=== PATIENT | female | born 1975 | race American Indian/Alaskan Native ===

== ENCOUNTER 2017-11-26 00:23 | Emergency (ER) | payer SELFPAY ==
[~2017-11-26] VITALS: Ht 157.5 cm; Wt 59.9 kg
[2017-11-26 00:23] VITALS: BP_SYST 151
--- NOTE | 2017-11-26 00:23 | NUR ---
Pt brought in by lawyer criminal for medical clearance before booking. Pt was found to have hypertension. Pt denied history of hypertension, denied any surgeries. Pt denied fever, chills, nausea or vomiting. Pt denied chest pain or SOB. Pt denied headache or blurry vision. Pt has elevated blood pressure, mildly elevated heart rate stated feeling anxious about her situation. Pt with normal respiratory effort, no sob, lungs cta. ER MD aware of pt's condition.
--- NOTE | 2017-11-26 00:23 | NUR ---
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
--- NOTE | 2017-11-26 00:36 | NUR ---
ER examining patient.
[2017-11-26 00:48] VITALS: BP_SYST 151
--- NOTE | 2017-11-26 00:48 | NUR ---
Patient has been medically cleared for booking. Patient given written and verbal discharge instructions and verbalizes understanding. ER MD discussed with patient the results and treatment provided. Patient in stable condition. ID arm band removed. No Rx given. Patient educated on pain management and to follow up with PMD. Pain Scale 0/10. Opportunity for questions provided and answered. Patient has been escorted by lawyers to car in handcuffs.
== END 2017-11-26 00:48 ==
LOC: SED 00:23
DX: Z02.89 Encounter for other administrative examinations (principal); I10 Essential (primary) hypertension; F17.200 Nicotine dependence, unspecified, uncomplicated
CPT/HCPCS: 99283